=== PATIENT | female | born 1985 | race Two or more races ===

== ENCOUNTER 2019-04-25 22:44 | Emergency (ER) | payer MEDICAID, OTHER ==
[~2019-04-25] VITALS: Ht 170.2 cm; Wt 64.0 kg
[2019-04-26 01:20] VITALS: BP 133/72
[2019-04-26] MEDS ORDERED: LIDOCAINE 1% HCL (LOCAL ANESTH.) INJ 20ML MDV ID ONE (01:30)
[2019-04-26] MEDS ORDERED: cefTRIAXone SOD 1,000 MG VL IM ONE (01:30)
== END 2019-04-26 00:38 | disposition home or self-care (01) ==
LOC: ER 22:44
DX: S91.011A Laceration without foreign body, right ankle, initial encounter (principal); W26.8XXA Contact with other sharp object(s), not elsewhere classified, initial encounter; Y93.01 Activity, walking, marching and hiking; Y92.89 Other specified places as the place of occurrence of the external cause; Y99.8 Other external cause status
CPT/HCPCS: 12002; 96372; J0696; J2001